=== PATIENT | female | born 1930 | race Caucasian/White ===

== ENCOUNTER 2020-02-17 08:57 | Inpatient (IN) | payer MEDICARE, MEDICAID, SELFPAY ==
[~2020-02-17] VITALS: Ht 154.9 cm; Wt 82.3 kg
[2020-02-17 10:08] LABS: Basophils # (auto) 0 10 ^3/uL (0-0.2); Basophils % (auto) 0.4 % (0.0-2.0); Eosinophils # (auto) 0 10 ^3/uL (0-0.8); Eosinophils % (auto) 0.1 % (0.0-7.0); Hematocrit 36.8 % (36.0-46.0); Hemoglobin 12.3 g/dL (12.2-16.2); Lymphocytes # (auto) 0.6 10 ^3/uL (0.4-5.4); Mean Corpuscular Hemoglobin 29.8 pg (28.0-32.0); Mean Corpuscular Hgb Conc. 33.3 g/dL (32.0-36.0); Mean Corpuscular Volume 89.5 fL (80.0-100.0); Monocytes # (auto) 0.5 10 ^3/uL (0-1.3); Neutrophils # (auto) 6.8 10 ^3/uL (1.6-8.6); Neutrophils % (auto) 86.5 % (37.0-80.0); Nucleated Red Blood Cells % 0.1 %; Red Blood Cells 4.11 10^6/uL (4.0-5.20); Red Cell Distribution Width 15.5 % (11.8-14.3); White Blood Cell 7.9 10^3/uL (4.4-10.8)
[2020-02-17 10:26] LABS: INR 1.11 (0.9-1.15); Partial Thromboplastin Time 35.8 sec (23.0-31.2)
[2020-02-17] MEDS ORDERED: HYDROcodone-ACET 5/325MG TAB PO PRN (16:00)
[2020-02-17] MEDS ORDERED: IPRATROPIUM BROM 0.5 MG/2.5ML INH SOL NEB SCH ×2 (16:00→18:00)
[2020-02-17] MEDS ORDERED: ACETAMINOPHEN 500 MG TAB PO PRN (16:00)
[2020-02-17] MEDS ORDERED: NITROGLYCERIN 0.4 MG SL TAB SL PRN (16:00)
[2020-02-17] MEDS ORDERED: MORPHINE SULFATE INJECTION 2 MG/ML SYRG IV PRN ×2 (16:00)
[2020-02-17] MEDS ORDERED: ONDANSETRON HCL 4 MG/2 ML VIAL IV PRN (16:00)
[2020-02-17 16:12] LABS: BUN/Creatinine Ratio 15.8; Calcium 8.9 mg/dL (8.5-10.1); Potassium 3.3 mmol/L (3.5-5.1)
[2020-02-17] MEDS ORDERED: ALBUTEROL SULF 2.5 MG/0.5ML(0.5%) NEB SOLN NEB SCH (18:00)
[2020-02-17 19:17] LABS: CRP High Sensitivity 6.39 mg/dL (< 0.3)
[2020-02-18] MEDS: SILDENAFIL CITRATE 20 MG TAB PO SCH ×4 (02:56→20:50)
[2020-02-18] MEDS: RIVAROXABAN 15 MG TAB PO SCH ×2 (02:56→18:00)
[2020-02-18] MEDS: methylPREDNISolone SOD SUCC 40 MG/ML VL IV SCH ×3 (04:34→20:50)
[2020-02-18] MEDS ORDERED: ALBUTEROL SULF HFA 90MCG INH 200DOSE IN SCH (06:00)
[2020-02-18] MEDS: BUDESONIDE (INHALATION) 180 MCG IH IN SCH ×2 (06:30→22:00)
[2020-02-18 08:29] LABS: Basophils # (auto) 0 10 ^3/uL (0-0.2); Basophils % (auto) 0.5 % (0.0-2.0); Eosinophils # (auto) 0 10 ^3/uL (0-0.8); Hemoglobin 12.6 g/dL (12.2-16.2); Lymphocytes # (auto) 0.5 10 ^3/uL (0.4-5.4); Lymphocytes % (auto) 8.9 % (10.0-50.0); Mean Corpuscular Hemoglobin 31.1 pg (28.0-32.0); Mean Corpuscular Hgb Conc. 34.9 g/dL (32.0-36.0); Mean Corpuscular Volume 89.2 fL (80.0-100.0); Monocytes # (auto) 0.2 10 ^3/uL (0-1.3); Monocytes % (auto) 2.7 % (0.0-12.0); Neutrophils # (auto) 5.2 10 ^3/uL (1.6-8.6); Neutrophils % (auto) 87.9 % (37.0-80.0); Red Blood Cells 4.04 10^6/uL (4.0-5.20); Red Cell Distribution Width 15.9 % (11.8-14.3); White Blood Cell 5.9 10^3/uL (4.4-10.8)
[2020-02-18] MEDS: ZINC SULFATE 220mg CAP or TAB PO SCH (08:36)
[2020-02-18] MEDS: cefTRIAXone 1GM/50ML D5W 50 ML IV SCH (08:36)
[2020-02-18] MEDS: ASCORBIC ACID 1,000 MG TAB PO SCH (08:37)
[2020-02-18] MEDS: CHOLECALCIFEROL (VITD3) 2,000 UNIT CAP/TAB PO SCH (08:37)
[2020-02-18] MEDS: FUROSEMIDE 20 MG TAB PO SCH (08:37)
[2020-02-18 08:38] LABS: BUN/Creatinine Ratio 20.4; Calcium 8.7 mg/dL (8.5-10.1); Potassium 3.5 mmol/L (3.5-5.1)
[2020-02-18] MEDS: METOPROLOL SUCCINATE XL 50 MG TAB PO SCH (10:00)
[2020-02-18] MEDS: AZITHROMYCIN 500MG/ 250ML 250 ML IV SCH (10:30)
[2020-02-18] MEDS ORDERED: REMDESIVIR PER PHARMACY 0 ML IV SCH (12:45)
[2020-02-18 18:01] VITALS: BP 120/67
[2020-02-18] MEDS ORDERED: RIVA15TA PO (18:59)
[2020-02-18] MEDS ORDERED: SILD30SU PO (18:59)
[2020-02-18] MEDS ORDERED: POTA1TAB61 PO (18:59)
[2020-02-18] MEDS ORDERED: GABA300C10 PO (18:59)
[2020-02-18] MEDS ORDERED: METO25TA36 PO (18:59)
[2020-02-18] MEDS ORDERED: HYDR-4833 PO (18:59)
[2020-02-18] MEDS ORDERED: OMEP20TA PO (18:59)
[2020-02-18] MEDS ORDERED: FURO40TA4 PO (18:59)
[2020-02-18] MEDS ORDERED: TEMA15CA2 PO (19:04)
[2020-02-18 19:44] LABS: Potassium 3.5 mmol/L (3.5-5.1)
[2020-02-18 19:50] LABS: Albumin 3.7 g/dL (3.4-5.0); Bilirubin, Total 0.6 mg/dL (0.2-1.0); Total Protein 7.7 g/dL (6.4-8.2)
[2020-02-18] MEDS ORDERED: REMDESIVIR 200 MG in NS 210ml LOADING DOSE ADULT IV ONE (20:00)
[2020-02-18] MEDS: guaiFENesin-DM 100/10mg/5ml SYR PO PRN (20:50)
[2020-02-18] MEDS: ALBUTEROL SULF HFA 90MCG INH 200DOSE IN PRN (23:22)
[2020-02-19] VITALS: BP 115/65
[2020-02-19] MEDS: ALBUTEROL SULF HFA 90MCG INH 200DOSE IN PRN ×2 (07:10→20:20)
[2020-02-19] MEDS: BUDESONIDE (INHALATION) 180 MCG IH IN SCH ×2 (07:10→20:20)
[2020-02-19 07:19] LABS: Basophils # (auto) 0 10 ^3/uL (0-0.2); Basophils % (auto) 0.1 % (0.0-2.0); Eosinophils # (auto) 0 10 ^3/uL (0-0.8); Hematocrit 36.6 % (36.0-46.0); Hemoglobin 12.4 g/dL (12.2-16.2); Lymphocytes # (auto) 0.5 10 ^3/uL (0.4-5.4); Lymphocytes % (auto) 8.7 % (10.0-50.0); Mean Corpuscular Hemoglobin 29.9 pg (28.0-32.0); Monocytes # (auto) 0.4 10 ^3/uL (0-1.3); Neutrophils # (auto) 5.2 10 ^3/uL (1.6-8.6); Neutrophils % (auto) 85.2 % (37.0-80.0); Nucleated Red Blood Cells % 0.1 %; Red Blood Cells 4.15 10^6/uL (4.0-5.20); Red Cell Distribution Width 15.7 % (11.8-14.3); White Blood Cell 6.1 10^3/uL (4.4-10.8)
[2020-02-19 08:00] VITALS: BP 94/61
[2020-02-19 08:54] LABS: Albumin 3.3 g/dL (3.4-5.0); Bilirubin, Total 0.4 mg/dL (0.2-1.0); Calcium 9.3 mg/dL (8.5-10.1); Potassium 3.8 mmol/L (3.5-5.1); Total Protein 7.1 g/dL (6.4-8.2)
[2020-02-19] MEDS: cefTRIAXone 1GM/50ML D5W 50 ML IV SCH (09:11)
[2020-02-19] MEDS: methylPREDNISolone SOD SUCC 40 MG/ML VL IV SCH ×2 (09:12→21:31)
[2020-02-19] MEDS: AZITHROMYCIN 500MG/ 250ML 250 ML IV SCH (09:12)
[2020-02-19] MEDS: CHOLECALCIFEROL (VITD3) 2,000 UNIT CAP/TAB PO SCH (09:15)
[2020-02-19] MEDS: ZINC SULFATE 220mg CAP or TAB PO SCH (09:16)
[2020-02-19] MEDS: ASCORBIC ACID 1,000 MG TAB PO SCH (09:16)
[2020-02-19] MEDS: FUROSEMIDE 20 MG TAB PO SCH (11:34)
[2020-02-19] MEDS: SILDENAFIL CITRATE 20 MG TAB PO SCH ×3 (11:34→20:42)
[2020-02-19] MEDS: METOPROLOL SUCCINATE XL 50 MG TAB PO SCH (11:34)
[2020-02-19] MEDS ORDERED: REMDESIVIR PER PHARMACY 0 ML IV SCH (14:45)
[2020-02-19] MEDS ORDERED: REMDESIVIR 100 MG in SODIUM CHL 0.9% 250 ML IV SCH (15:00)
[2020-02-19] MEDS: RIVAROXABAN 15 MG TAB PO SCH ×2 (15:41→15:48)
[2020-02-19 16:00] VITALS: BP 103/63
[2020-02-19] MEDS ORDERED: REMDESIVIR 200 MG in NS 210ml LOADING DOSE ADULT IV ONE (17:00)
[2020-02-20] VITALS: BP 118/76
[2020-02-20 04:28] LABS: Urine Bacteria NONE SEEN /hpf (None Seen); Urine Blood Negative /uL (Negative); Urine Hyaline Cast FEW /lpf (0 - 2); Urine Mucus FEW (None Seen); Urine Specific Gravity 1.017 (1.001-1.035); Urine WBC <1 /hpf (0 - 5)
[2020-02-20 08:00] VITALS: BP 108/86
[2020-02-20 08:02] LABS: Albumin 3.2 g/dL (3.4-5.0); Calcium 9.2 mg/dL (8.5-10.1); Potassium 3.9 mmol/L (3.5-5.1)
[2020-02-20 08:27] LABS: BUN/Creatinine Ratio 27.2; Bilirubin, Total 0.4 mg/dL (0.2-1.0); Total Protein 6.9 g/dL (6.4-8.2)
[2020-02-20] MEDS: SILDENAFIL CITRATE 20 MG TAB PO SCH ×3 (09:31→22:15)
[2020-02-20] MEDS: cefTRIAXone 1GM/50ML D5W 50 ML IV SCH (09:31)
[2020-02-20] MEDS: BUDESONIDE (INHALATION) 180 MCG IH IN SCH ×2 (10:11→19:21)
[2020-02-20] MEDS: methylPREDNISolone SOD SUCC 40 MG/ML VL IV SCH ×2 (10:12→22:15)
[2020-02-20] MEDS: ZINC SULFATE 220mg CAP or TAB PO SCH (10:12)
[2020-02-20] MEDS: FUROSEMIDE 20 MG TAB PO SCH (10:12)
[2020-02-20] MEDS: CHOLECALCIFEROL (VITD3) 2,000 UNIT CAP/TAB PO SCH (10:13)
[2020-02-20] MEDS: RIVAROXABAN 15 MG TAB PO SCH (10:13)
[2020-02-20] MEDS: AZITHROMYCIN 250 MG TAB PO SCH (10:13)
[2020-02-20] MEDS: METOPROLOL SUCCINATE XL 50 MG TAB PO SCH (10:13)
[2020-02-20] MEDS: ASCORBIC ACID 1,000 MG TAB PO SCH (10:13)
[2020-02-20] MEDS: REMDESIVIR 100 MG in SODIUM CHL 0.9% 250 ML IV SCH (15:09)
[2020-02-20 16:00] VITALS: BP 93/68
[2020-02-20] MEDS: ALBUTEROL SULF HFA 90MCG INH 200DOSE IN PRN (19:21)
[2020-02-20] MEDS: guaiFENesin-DM 100/10mg/5ml SYR PO PRN (22:51)
[2020-02-21 00:29] VITALS: BP 94/52
[2020-02-21 08:00] VITALS: BP 118/81
[2020-02-21 08:11] LABS: Chloride 108 mmol/L (98-107); Potassium 3.8 mmol/L (3.5-5.1); Sodium 139 mmol/L (136-145)
[2020-02-21 08:17] LABS: Alanine Aminotransferase 24 U/L (13-56); Albumin 3.2 g/dL (3.4-5.0); Alkaline Phosphatase 58 U/L (45-117); Anion Gap 6 (5-15); Aspartate Aminotransferase 23 U/L (15-37); BUN/Creatinine Ratio 34.6; Bilirubin, Total 0.4 mg/dL (0.2-1.0); Blood Urea Nitrogen 44 mg/dL (7-18); Calcium 8.9 mg/dL (8.5-10.1); Carbon Dioxide 25 mmol/L (21-32); GFR African American 51 mL/min; GFR Non-African American 42 mL/min; Glucose 159 mg/dL (74-106); Total Protein 6.6 g/dL (6.4-8.2)
[2020-02-21] MEDS: SILDENAFIL CITRATE 20 MG TAB PO SCH ×3 (09:12→20:13)
[2020-02-21] MEDS: cefTRIAXone 1GM/50ML D5W 50 ML IV SCH (09:12)
[2020-02-21] MEDS: methylPREDNISolone SOD SUCC 40 MG/ML VL IV SCH (09:13)
[2020-02-21] MEDS: ZINC SULFATE 220mg CAP or TAB PO SCH (09:14)
[2020-02-21] MEDS: CHOLECALCIFEROL (VITD3) 2,000 UNIT CAP/TAB PO SCH (09:16)
[2020-02-21] MEDS: ASCORBIC ACID 1,000 MG TAB PO SCH (09:16)
[2020-02-21] MEDS: METOPROLOL SUCCINATE XL 50 MG TAB PO SCH (09:16)
[2020-02-21] MEDS: AZITHROMYCIN 250 MG TAB PO SCH (09:17)
[2020-02-21] MEDS: RIVAROXABAN 15 MG TAB PO SCH (09:17)
[2020-02-21] MEDS: FUROSEMIDE 20 MG TAB PO SCH (09:20)
[2020-02-21] MEDS: BUDESONIDE (INHALATION) 180 MCG IH IN SCH ×2 (10:00→20:17)
[2020-02-21] MEDS: Ensure HIGH Protein Chocolate 8oz Bottle PO SCH ×2 (12:00→18:00)
[2020-02-21] MEDS: REMDESIVIR 100 MG in SODIUM CHL 0.9% 250 ML IV SCH (15:50)
[2020-02-21 16:00] VITALS: BP 101/64
[2020-02-21] MEDS: ALBUTEROL SULF HFA 90MCG INH 200DOSE IN PRN ×2 (16:06→20:17)
[2020-02-22] VITALS: BP 96/58
[2020-02-22] MEDS: BUDESONIDE (INHALATION) 180 MCG IH IN SCH (06:40)
[2020-02-22] MEDS: ALBUTEROL SULF HFA 90MCG INH 200DOSE IN PRN (06:40)
[2020-02-22 07:21] LABS: Albumin 2.8 g/dL (3.4-5.0); Calcium 8.8 mg/dL (8.5-10.1); Potassium 3.6 mmol/L (3.5-5.1)
[2020-02-22 07:26] LABS: BUN/Creatinine Ratio 37.4; Bilirubin, Total 0.4 mg/dL (0.2-1.0); Total Protein 6.1 g/dL (6.4-8.2)
[2020-02-22 08:00] VITALS: BP 105/64
[2020-02-22] MEDS: Ensure HIGH Protein Chocolate 8oz Bottle PO SCH ×3 (08:00→18:00)
[2020-02-22] MEDS: cefTRIAXone 1GM/50ML D5W 50 ML IV SCH (09:29)
[2020-02-22] MEDS: SILDENAFIL CITRATE 20 MG TAB PO SCH ×2 (09:29→14:00)
[2020-02-22] MEDS: ASCORBIC ACID 1,000 MG TAB PO SCH (09:29)
[2020-02-22] MEDS: ZINC SULFATE 220mg CAP or TAB PO SCH (09:29)
[2020-02-22] MEDS: CHOLECALCIFEROL (VITD3) 2,000 UNIT CAP/TAB PO SCH (09:30)
[2020-02-22] MEDS: RIVAROXABAN 15 MG TAB PO SCH (09:30)
[2020-02-22] MEDS: AZITHROMYCIN 250 MG TAB PO SCH (09:30)
[2020-02-22] MEDS: FUROSEMIDE 20 MG TAB PO SCH (09:32)
[2020-02-22] MEDS: METOPROLOL SUCCINATE XL 50 MG TAB PO SCH (09:32)
[2020-02-22] MEDS: guaiFENesin-DM 100/10mg/5ml SYR PO PRN (09:52)
[2020-02-22] MEDS ORDERED: predniSONE 20 MG TAB PO SCH (10:00)
[2020-02-22 16:00] VITALS: BP 100/59
[2020-02-22] MEDS: REMDESIVIR 100 MG in SODIUM CHL 0.9% 250 ML IV SCH (16:00)
[2020-02-22 17:34] VITALS: BP 105/64
== END 2020-02-22 18:05 | disposition home or self-care (01) | DRG 177 ==
LOC: EDBD 08:57 → ER 08:57 → TELE 16:04 → TELE-WESTW 02-18 16:14
PROVIDERS: ADMIT Nurse Practitioner Acute Care; ATTEND Internal Medicine
PROC: XW033E5 Introduction of Remdesivir Anti-infective into Peripheral Vein, Percutaneous Approach, New Technology Group 5 (ICD-10-PCS; principal; 2020-02-18)
PROC: 5A09357 Assistance with Respiratory Ventilation, Less than 24 Consecutive Hours, Continuous Positive Airway Pressure (ICD-10-PCS; 2020-02-18)
PROC: 5A09357 Assistance with Respiratory Ventilation, Less than 24 Consecutive Hours, Continuous Positive Airway Pressure (ICD-10-PCS; 2020-02-19)
PROC: 5A09357 Assistance with Respiratory Ventilation, Less than 24 Consecutive Hours, Continuous Positive Airway Pressure (ICD-10-PCS; 2020-02-20)
PROC: 5A09357 Assistance with Respiratory Ventilation, Less than 24 Consecutive Hours, Continuous Positive Airway Pressure (ICD-10-PCS; 2020-02-21)
DX: U07.1 COVID-19 (principal); J96.21 Acute and chronic respiratory failure with hypoxia; N17.0 Acute kidney failure with tubular necrosis; J12.82 Pneumonia due to coronavirus disease 2019; D68.59 Other primary thrombophilia; I13.0 Hypertensive heart and chronic kidney disease with heart failure and stage 1 through stage 4 chronic kidney disease, or unspecified chronic kidney disease; I50.42 Chronic combined systolic (congestive) and diastolic (congestive) heart failure; I48.91 Unspecified atrial fibrillation; I27.20 Pulmonary hypertension, unspecified; M06.9 Rheumatoid arthritis, unspecified; I25.10 Atherosclerotic heart disease of native coronary artery without angina pectoris; Z95.1 Presence of aortocoronary bypass graft; E66.9 Obesity, unspecified; Z79.01 Long term (current) use of anticoagulants; N18.30 Chronic kidney disease, stage 3 unspecified; Z68.28 Body mass index [BMI] 28.0-28.9, adult
CPT/HCPCS: 36415; 71045; 80048; 80053; 81001; 82728; 83615; 83880; 84443; 84484; 85025; 85379; 85610; 85730; 86141; 86850; 86900; 86901; 87040; 87070; 87077; 87205; 87426; 93005; 94640; 94660; 99291; G0378; J0696